=== PATIENT | male | born 1950 | race Caucasian/White ===

== ENCOUNTER 2019-03-22 07:01 | Day surgery (SDC) | payer OTHER, BC ==
[2019-03-21 13:12] VITALS: BMI 30.1
[2019-03-22 08:31] VITALS: TEMP 97.8
[2019-03-22 09:29] VITALS: BP 109/50; PULSE 73
--- NOTE | 2019-03-25 16:43 | PATH ---
Surgical Pathology Report Patient Name: ROGERS PIEDRA [facility]. Rec. #: [id number] /Age/Gender: 1950 (Age: 68) / M Account: [id number] Location: [facility]-ENDOSCOPY Taken: 03/22/2019 Received: 03/22/2019 Reported: 03/25/2019 Physicians: Chadd Rubin M.D. Specimen(s) Received A: RIGHT COLON B: HEPATIC FLEXURE POLYP C: RECTAL POLYP Clinical History History of colonoscopy Postoperative diagnosis: Polyps, diverticulosis Final Diagnosis A. RIGHT COLON POLYPS, POLYPECTOMY: TUBULAR ADENOMA, FOUR FRAGMENTS. B. HEPATIC FLEXURE POLYP, POLYPECTOMY: TUBULAR ADENOMA. C. RECTAL POLYP, POLYPECTOMY: HYPERPLASTIC POLYP. Electronically Signed Radha Stephen M.D. Gross Description A. Received in formalin, labeled "right colon polyps" are 4 monroe, irregular portions of soft tissue ranging from 0.1-0.2 cm. in greatest dimension. The specimens are submitted in toto in one cassette. B. Received in formalin, labeled "biopsy hepatic flexure" are 3 monroe, irregular portions of soft tissue ranging from 0.2-0.3 cm. in greatest dimension. The specimens are submitted in toto in one cassette. C. Received in formalin, labeled "biopsy rectal polyp" is a monroe, irregular portion of soft tissue measuring 0.4 cm. in greatest dimension. The specimen is submitted in toto in one cassette. DL/03/22/2019 saudi/03/22/2019
== END 2019-03-22 09:37 | disposition home or self-care (01) ==
LOC: JASU-ENDO 07:01
PROVIDERS: ATTEND Internal Medicine Gastroenterology
PROC: 0DBL8ZX Excision of Transverse Colon, Via Natural or Artificial Opening Endoscopic, Diagnostic (ICD-10-PCS; 2019-03-22)
PROC: 0DBP8ZX Excision of Rectum, Via Natural or Artificial Opening Endoscopic, Diagnostic (ICD-10-PCS; 2019-03-22)
PROC: 0DBK8ZX Excision of Ascending Colon, Via Natural or Artificial Opening Endoscopic, Diagnostic (ICD-10-PCS; principal; 2019-03-22 08:00)
DX: Z12.11 Encounter for screening for malignant neoplasm of colon (principal); Z86.010 Personal history of colon polyps; D12.2 Benign neoplasm of ascending colon; K62.1 Rectal polyp; D12.3 Benign neoplasm of transverse colon; K57.30 Diverticulosis of large intestine without perforation or abscess without bleeding
CPT/HCPCS: 88305-TC

== ENCOUNTER 2020-09-25 11:43 | Inpatient (IN) | payer OTHER, BC ==
[2020-09-25] MEDS ORDERED: ACETAMINOPHEN 500 MG TABLET (FP) PO ONE (13:09)
[2020-09-25] MEDS ORDERED: SODIUM CHLORIDE 1,000 ML IV STA (13:09)
[2020-09-25] MEDS ORDERED: ACETAMINOPHEN 325 MG TABLET (FP) ONE (13:31)
[2020-09-25] MEDS ORDERED: ACETAMINOPHEN 1000 MG/100 ML VIAL (NON FORMULARY) IVPB PRN (17:38)
[2020-09-25] MEDS: SODIUM CHLORIDE 1,000 ML IV SCH (18:17)
[2020-09-25] MEDS ORDERED: PIPERACILLIN/TAZOB 3.375 GM 3.375 GM/50 ML BAG IVPB ONE (19:23)
[2020-09-25] MEDS: PIPERACILLIN/TAZOB 3.375 GM 3.375 GM in DEXTROSE 5%-WATER - 50 ML IVPB SCH (19:58)
[2020-09-26 00:04] VITALS: BMI 29.7
[2020-09-26] MEDS ORDERED: DEXTROSE 5%-WATER - 50 ML IVPB ONE ×4 (00:13→18:23)
[2020-09-26] MEDS ORDERED: PIPERACILLIN/TAZOBACTAM 3.375 GM VIAL IVPB ONE ×4 (00:13→18:22)
[2020-09-26] MEDS: PIPERACILLIN/TAZOB 3.375 GM 3.375 GM in DEXTROSE 5%-WATER - 50 ML IVPB SCH ×4 (00:21→18:29)
[2020-09-26] MEDS: SODIUM CHLORIDE 1,000 ML IV SCH (06:38)
[2020-09-26 09:12] LABS: BASO % 0.2 % (0-2.0); EOS % 0.6 % (0-4.5); HEMATOCRIT 35.6 % (35.4-49); HEMOGLOBIN 12.3 GM/dL (11.7-16.9); LYMPH % 10.3 % (8-40); MCHC 34.6 g/dl (32.0-35.9); MEAN CELL VOLUME 89.6 fl (80-96); MEAN PLT VOLUME 7.8 fl (7.5-11.1); MONO % 6.6 % (3.8-10.2); NEUT % 82.3 % (42.8-82.8); PLATELET COUNT 393 10^3/uL (134-434); RBC 3.97 M/mm3 (4.00-5.60); RDW 13.9 % (11.9-15.9); WHITE BLOOD COUNT 14.5 K/mm3 (4.0-10.0)
[2020-09-26 09:33] LABS: ALBUMIN 2.5 g/dl (3.4-5.0); BLOOD UREA NITROGEN 15.1 mg/dL (7-18); CALCIUM 7.6 mg/dL (8.5-10.1)
[2020-09-26 09:34] LABS: MAGNESIUM 2.2 mg/dL (1.8-2.4)
[2020-09-26 09:36] LABS: PHOSPHOROUS 3.6 mg/dL (2.5-4.9)
[2020-09-26 09:37] LABS: BILIRUBIN,TOTAL 0.7 mg/dL (0.2-1); TOT PROT 5.6 g/dl (6.4-8.2)
[2020-09-26] MEDS: DEXTROSE 5%-0.45% SALINE 1,000 ML IV SCH (14:41)
[2020-09-27] MEDS ORDERED: DEXTROSE 5%-WATER - 50 ML IVPB ONE ×4 (01:55→20:12)
[2020-09-27] MEDS ORDERED: PIPERACILLIN/TAZOBACTAM 3.375 GM VIAL IVPB ONE ×4 (01:55→20:12)
[2020-09-27] MEDS: DEXTROSE 5%-0.45% SALINE 1,000 ML IV SCH ×4 (02:03→18:11)
[2020-09-27] MEDS: PIPERACILLIN/TAZOB 3.375 GM 3.375 GM in DEXTROSE 5%-WATER - 50 ML IVPB SCH ×4 (02:03→20:18)
[2020-09-27 08:40] LABS: BASO % 0.1 % (0-2.0); HEMATOCRIT 37.4 % (35.4-49); HEMOGLOBIN 12.9 GM/dL (11.7-16.9); MCH 30.9 pg (25.7-33.7); MCHC 34.5 g/dl (32.0-35.9); MEAN CELL VOLUME 89.7 fl (80-96); MEAN PLT VOLUME 7.6 fl (7.5-11.1); MONO % 6.9 % (3.8-10.2); PLATELET COUNT 442 10^3/uL (134-434); RBC 4.17 M/mm3 (4.00-5.60); RDW 13.8 % (11.9-15.9); WHITE BLOOD COUNT 11.8 K/mm3 (4.0-10.0)
[2020-09-27 08:47] LABS: INR 1.25 (0.83-1.09); PROTHROMBIN TIME (PATIENT) 15.3 SEC (9.7-13.0)
[2020-09-27 09:06] LABS: CALCIUM 7.8 mg/dL (8.5-10.1)
[2020-09-27 09:07] LABS: ALBUMIN 2.4 g/dl (3.4-5.0); BLOOD UREA NITROGEN 9.3 mg/dL (7-18)
[2020-09-27 09:10] LABS: CREATININE 1.1 mg/dL (0.55-1.3)
[2020-09-27 09:11] LABS: BILIRUBIN,TOTAL 0.6 mg/dL (0.2-1)
[2020-09-27 09:12] LABS: AMYLASE 33 U/L (25-115); LIPASE 149 U/L (73-393); TOT PROT 5.8 g/dl (6.4-8.2)
[2020-09-27 09:13] LABS: ALBUMIN 2.5 g/dl (3.4-5.0)
[2020-09-27 09:16] LABS: BILIRUBIN,DIRECT 0.2 mg/dL (0.0-0.2)
[2020-09-27 09:18] LABS: BILIRUBIN,TOTAL 0.6 mg/dL (0.2-1); TOT PROT 5.9 g/dl (6.4-8.2)
[2020-09-28] MEDS ORDERED: PIPERACILLIN/TAZOBACTAM 3.375 GM VIAL IVPB ONE ×4 (02:18→20:43)
[2020-09-28] MEDS ORDERED: DEXTROSE 5%-WATER - 50 ML IVPB ONE ×4 (02:19→20:43)
[2020-09-28] MEDS: PIPERACILLIN/TAZOB 3.375 GM 3.375 GM in DEXTROSE 5%-WATER - 50 ML IVPB SCH ×4 (02:46→21:49)
[2020-09-28] MEDS: DEXTROSE 5%-0.45% SALINE 1,000 ML IV SCH ×4 (02:47→19:47)
[2020-09-28 08:18] LABS: BASO % 0.3 % (0-2.0); HEMATOCRIT 37.5 % (35.4-49); HEMOGLOBIN 13.2 GM/dL (11.7-16.9); LYMPH % 14.4 % (8-40); MCH 31.3 pg (25.7-33.7); MCHC 35.2 g/dl (32.0-35.9); MEAN CELL VOLUME 88.9 fl (80-96); MEAN PLT VOLUME 7.5 fl (7.5-11.1); MONO % 6.9 % (3.8-10.2); NEUT % 76.4 % (42.8-82.8); PLATELET COUNT 464 10^3/uL (134-434); RBC 4.22 M/mm3 (4.00-5.60); RDW 13.3 % (11.9-15.9); WHITE BLOOD COUNT 9.1 K/mm3 (4.0-10.0)
[2020-09-28 08:35] LABS: CALCIUM 8.1 mg/dL (8.5-10.1)
[2020-09-28 08:36] LABS: ALBUMIN 2.4 g/dl (3.4-5.0); BLOOD UREA NITROGEN 5.2 mg/dL (7-18)
[2020-09-28 08:38] LABS: BILIRUBIN,DIRECT 0.2 mg/dL (0.0-0.2)
[2020-09-28 08:40] LABS: BILIRUBIN,TOTAL 0.4 mg/dL (0.2-1)
[2020-09-28 08:41] LABS: TOT PROT 5.7 g/dl (6.4-8.2)
[2020-09-28] MEDS: TAMSULOSIN HCL 0.4 MG CAP PO SCH (09:29)
[2020-09-28] MEDS: amLODIPine BESYLATE 10 MG TABLET (FP) PO SCH (09:29)
[2020-09-28] MEDS ORDERED: MIDAZOLAM HCL 2 MG/2 ML SINGLE DOSE VIAL IVPUSH ONE ×2 (10:28→10:44)
[2020-09-28] MEDS ORDERED: SODIUM CHLORIDE 500 ML IV ONE (11:15)
[2020-09-28 17:09] LABS: WEST NILE VIRUS AB SERUM,IGM Negative (Negative)
[2020-09-29] MEDS ORDERED: DEXTROSE 5%-WATER - 50 ML IVPB ONE ×4 (02:23→19:45)
[2020-09-29] MEDS ORDERED: PIPERACILLIN/TAZOBACTAM 3.375 GM VIAL IVPB ONE ×4 (02:23→19:45)
[2020-09-29] MEDS: PIPERACILLIN/TAZOB 3.375 GM 3.375 GM in DEXTROSE 5%-WATER - 50 ML IVPB SCH ×4 (02:28→19:59)
[2020-09-29] MEDS: DEXTROSE 5%-0.45% SALINE 1,000 ML IV SCH ×3 (04:33→19:53)
[2020-09-29] MEDS: TAMSULOSIN HCL 0.4 MG CAP PO SCH (07:55)
[2020-09-29 08:15] LABS: BASO % 0.1 % (0-2.0); EOS % 0.5 % (0-4.5); HEMATOCRIT 34.9 % (35.4-49); HEMOGLOBIN 12.4 GM/dL (11.7-16.9); LYMPH % 3.9 % (8-40); MCH 31.5 pg (25.7-33.7); MCHC 35.4 g/dl (32.0-35.9); MEAN CELL VOLUME 88.9 fl (80-96); MEAN PLT VOLUME 7.3 fl (7.5-11.1); MONO % 3.6 % (3.8-10.2); NEUT % 91.9 % (42.8-82.8); PLATELET COUNT 437 10^3/uL (134-434); RBC 3.93 M/mm3 (4.00-5.60); RDW 13.5 % (11.9-15.9); WHITE BLOOD COUNT 23.6 K/mm3 (4.0-10.0)
[2020-09-29 08:28] LABS: ALBUMIN 2.3 g/dl (3.4-5.0)
[2020-09-29 08:30] LABS: BLOOD UREA NITROGEN 6.9 mg/dL (7-18); CALCIUM 7.7 mg/dL (8.5-10.1)
[2020-09-29 08:31] LABS: ALBUMIN 2.3 g/dl (3.4-5.0); BILIRUBIN,DIRECT 0.2 mg/dL (0.0-0.2); MAGNESIUM 1.9 mg/dL (1.8-2.4)
[2020-09-29 08:33] LABS: BILIRUBIN,TOTAL 0.5 mg/dL (0.2-1); TOT PROT 5.5 g/dl (6.4-8.2)
[2020-09-29 08:34] LABS: CREATININE 1.1 mg/dL (0.55-1.3); PHOSPHOROUS 3.1 mg/dL (2.5-4.9)
[2020-09-29 08:35] LABS: BILIRUBIN,TOTAL 0.8 mg/dL (0.2-1); TOT PROT 5.6 g/dl (6.4-8.2)
[2020-09-29] MEDS: amLODIPine BESYLATE 10 MG TABLET (FP) PO SCH (10:04)
[2020-09-29 11:41] LABS: ANISOCYTOSIS 0; MACROCYTOSIS 0; PLATELET ESTIMATE NORMAL
[2020-09-29] MEDS ORDERED: POTASSIUM CHLORIDE TABS 20 MEQ TABLET.ER (FP) PO ONE (11:55)
[2020-09-29 15:09] LABS: E.chaff HME IgG Negative (Neg:<1:64)
[2020-09-29] MEDS: ACETAMINOPHEN 500 MG TABLET (FP) PO PRN (20:26)
[2020-09-30] MEDS ORDERED: PIPERACILLIN/TAZOBACTAM 3.375 GM VIAL IVPB ONE ×4 (02:04→20:25)
[2020-09-30] MEDS ORDERED: DEXTROSE 5%-WATER - 50 ML IVPB ONE ×4 (02:05→20:25)
[2020-09-30] MEDS: PIPERACILLIN/TAZOB 3.375 GM 3.375 GM in DEXTROSE 5%-WATER - 50 ML IVPB SCH ×4 (02:10→21:07)
[2020-09-30 02:42] LABS: URINE APPEARANCE CLEAR; URINE BILIRUBIN NEGATIVE (NEGATIVE); URINE COLOR YELLOW; URINE GLUCOSE (UA) NEGATIVE (NEGATIVE); URINE KETONE NEGATIVE (NEGATIVE); URINE LEUK ESTERASE NEGATIVE (NEGATIVE); URINE NITRITE NEGATIVE (NEGATIVE); URINE PROTEIN NEGATIVE (NEGATIVE); URINE UROBILINOGEN 0.2 mg/dL (0.2-1.0)
[2020-09-30] MEDS: DEXTROSE 5%-0.45% SALINE 1,000 ML IV SCH ×2 (05:40→14:37)
[2020-09-30] MEDS: TAMSULOSIN HCL 0.4 MG CAP PO SCH (08:05)
[2020-09-30 09:22] LABS: BASO % 0.3 % (0-2.0); EOS % 1.1 % (0-4.5); HEMATOCRIT 39.3 % (35.4-49); HEMOGLOBIN 13.7 GM/dL (11.7-16.9); LYMPH % 8.7 % (8-40); MCH 30.7 pg (25.7-33.7); MCHC 34.7 g/dl (32.0-35.9); MEAN CELL VOLUME 88.2 fl (80-96); MEAN PLT VOLUME 7.1 fl (7.5-11.1); MONO % 5.5 % (3.8-10.2); NEUT % 84.4 % (42.8-82.8); PLATELET COUNT 438 10^3/uL (134-434); RBC 4.45 M/mm3 (4.00-5.60); RDW 13.5 % (11.9-15.9); WHITE BLOOD COUNT 14.1 K/mm3 (4.0-10.0)
[2020-09-30 09:53] LABS: ALBUMIN 2.7 g/dl (3.4-5.0)
[2020-09-30 09:58] LABS: BLOOD UREA NITROGEN 6.1 mg/dL (7-18); CALCIUM 8.5 mg/dL (8.5-10.1)
[2020-09-30 10:00] LABS: MAGNESIUM 2.1 mg/dL (1.8-2.4); PHOSPHOROUS 2.6 mg/dL (2.5-4.9)
[2020-09-30 10:01] LABS: CREATININE 0.9 mg/dL (0.55-1.3)
[2020-09-30 10:02] LABS: TOT PROT 6.4 g/dl (6.4-8.2)
[2020-09-30 10:05] LABS: BILIRUBIN,TOTAL 0.8 mg/dL (0.2-1)
[2020-09-30] MEDS: amLODIPine BESYLATE 10 MG TABLET (FP) PO SCH (10:12)
[2020-09-30] MEDS: ACETAMINOPHEN 500 MG TABLET (FP) PO PRN (21:14)
[2020-10-01] MEDS ORDERED: DEXTROSE 5%-WATER - 50 ML IVPB ONE ×2 (01:42→08:40)
[2020-10-01] MEDS ORDERED: PIPERACILLIN/TAZOBACTAM 3.375 GM VIAL IVPB ONE ×2 (01:42→08:40)
[2020-10-01] MEDS: PIPERACILLIN/TAZOB 3.375 GM 3.375 GM in DEXTROSE 5%-WATER - 50 ML IVPB SCH ×3 (02:16→15:04)
[2020-10-01] MEDS: DEXTROSE 5%-0.45% SALINE 1,000 ML IV SCH ×3 (02:19→15:03)
[2020-10-01 08:40] LABS: BASO % 0.4 % (0-2.0); EOS % 2.7 % (0-4.5); HEMATOCRIT 36.6 % (35.4-49); HEMOGLOBIN 12.9 GM/dL (11.7-16.9); LYMPH % 17.1 % (8-40); MCH 31.5 pg (25.7-33.7); MCHC 35.3 g/dl (32.0-35.9); MEAN CELL VOLUME 89.2 fl (80-96); MEAN PLT VOLUME 7.3 fl (7.5-11.1); NEUT % 70.8 % (42.8-82.8); PLATELET COUNT 427 10^3/uL (134-434); RDW 13.7 % (11.9-15.9); WHITE BLOOD COUNT 9.3 K/mm3 (4.0-10.0)
[2020-10-01] MEDS: TAMSULOSIN HCL 0.4 MG CAP PO SCH (08:43)
[2020-10-01 09:12] LABS: ALBUMIN 2.4 g/dl (3.4-5.0); CALCIUM 8.2 mg/dL (8.5-10.1)
[2020-10-01 09:13] LABS: BLOOD UREA NITROGEN 7.5 mg/dL (7-18); MAGNESIUM 2.2 mg/dL (1.8-2.4)
[2020-10-01 09:15] LABS: PHOSPHOROUS 3.3 mg/dL (2.5-4.9)
[2020-10-01 09:16] LABS: CREATININE 0.9 mg/dL (0.55-1.3)
[2020-10-01 09:17] LABS: BILIRUBIN,TOTAL 0.4 mg/dL (0.2-1); TOT PROT 5.9 g/dl (6.4-8.2)
[2020-10-01] MEDS: amLODIPine BESYLATE 10 MG TABLET (FP) PO SCH (09:33)
[2020-10-01 14:59] VITALS: BP 140/83; PULSE 87; TEMP 98.3
[2020-10-06 16:09] LABS: BABESIA MICROTI ANTIBODY IGG <1:10 (Neg:<1:10); BABESIA MICROTI ANTIBODY IGM <1:10 (Neg:<1:10)
== END 2020-10-01 15:21 | disposition home health service (06) | DRG 446 ==
LOC: JER 11:43 → JERBED 16:47 → J8W 22:02
PROC: 0F9430Z Drainage of Gallbladder with Drainage Device, Percutaneous Approach (ICD-10-PCS; principal; 2020-09-28)
PROC: BF12YZZ Fluoroscopy of Gallbladder using Other Contrast (ICD-10-PCS; 2020-09-28)
DX: K80.00 Calculus of gallbladder with acute cholecystitis without obstruction (principal); E78.00 Pure hypercholesterolemia, unspecified; K46.9 Unspecified abdominal hernia without obstruction or gangrene; D72.829 Elevated white blood cell count, unspecified; N40.0 Benign prostatic hyperplasia without lower urinary tract symptoms; K76.89 Other specified diseases of liver; K57.90 Diverticulosis of intestine, part unspecified, without perforation or abscess without bleeding; I10 Essential (primary) hypertension; D12.6 Benign neoplasm of colon, unspecified; K62.7 Radiation proctitis; N32.89 Other specified disorders of bladder; E66.9 Obesity, unspecified; Z68.29 Body mass index [BMI] 29.0-29.9, adult; Z85.46 Personal history of malignant neoplasm of prostate
CPT/HCPCS: 36415; 47490; 74177-TC; 74181-TC; 80048; 80053; 80076; 81003; 82150; 82550; 82553; 83690; 83735; 84100; 84443; 85025; 85610; 86140; 86301; 86618; 86666; 86753; 86788; 86789; 87040; 87045; 87046; 87070; 87075; 87077; 87086; 87102; 87116; 87177; 87184; 87205; 87206; 87207; 87209; 87210; 87324; 87449; 93005; 93010; 97116-GP; 97162-GP; 99285-25; A4358; C1729; C1769; C9803; J0131; Q9967; U0003; U0005

== ENCOUNTER 2020-11-11 04:18 | Day surgery (SDC) | payer OTHER, BC ==
[2020-11-10 09:03] VITALS: BMI 28.3
[2020-11-11] MEDS ORDERED: BUPIVACAINE HCL/PF 0.5% (5MG/ML) 10 ML VIAL ONE (12:56)
[2020-11-11] MEDS ORDERED: ONDANSETRON 4 MG/2 ML VIAL IVPUSH PRN ×2 (13:31→15:44)
[2020-11-11] MEDS ORDERED: oxyCODONE HCL 5 MG TABLET PO PRN ×3 (13:31→15:44)
[2020-11-11] MEDS ORDERED: MIDAZOLAM HCL 2 MG/2 ML SINGLE DOSE VIAL ONE (13:36)
[2020-11-11] MEDS ORDERED: LACTATED RINGERS SOLUTION 1,000 ML IV SCH (13:45)
[2020-11-11] MEDS ORDERED: ceFAZolin SODIUM 1 GM VIAL IVPB ONE (13:56)
[2020-11-11] MEDS ORDERED: BUPIVACAINE HCL/PF 0.5% (5 MG/ML) 30 ML VIAL IJ ONE (14:11)
[2020-11-11] MEDS ORDERED: PROPOFOL 20 ML ONE (14:35)
[2020-11-11] MEDS ORDERED: TAMSULOSIN HCL 0.4 MG CAP PO SCH (16:00)
[2020-11-11] MEDS ORDERED: HEPARIN NA (PORCINE) 5,000 UNITS/ML 1ML VIAL SQ SCH (18:00)
[2020-11-11] MEDS: ACETAMINOPHEN 500 MG TABLET (FP) PO SCH (18:09)
[2020-11-12] MEDS: ACETAMINOPHEN 500 MG TABLET (FP) PO SCH ×3 (00:23→12:01)
[2020-11-12 04:00] VITALS: TEMP 98.8
[2020-11-12] MEDS: HEPARIN NA (PORCINE) 5,000 UNITS/ML 1ML VIAL SQ SCH ×2 (06:41→14:38)
[2020-11-12] MEDS ORDERED: TAMSULOSIN HCL 0.4 MG CAP PO SCH (08:30)
[2020-11-12] MEDS ORDERED: amLODIPine BESYLATE 10 MG TABLET (FP) PO SCH (10:00)
[2020-11-12] MEDS ORDERED: MULTIVITAMINS (DAILY MVI) TABLET (FP) PO SCH (10:00)
[2020-11-12] MEDS ORDERED: CHOLECALCIFEROL (VIT D3) 1,000 UNIT (25 MCG) TABLET PO SCH (10:00)
[2020-11-12 11:25] LABS: BASO % 0.1 % (0-2.0); HEMATOCRIT 39.6 % (35.4-49); HEMOGLOBIN 13.5 GM/dL (11.7-16.9); LYMPH % 12.5 % (8-40); MCH 30.2 pg (25.7-33.7); MEAN CELL VOLUME 88.8 fl (80-96); MEAN PLT VOLUME 8.8 fl (7.5-11.1); MONO % 6.8 % (3.8-10.2); NEUT % 80.6 % (42.8-82.8); PLATELET COUNT 201 10^3/uL (134-434); RBC 4.46 M/mm3 (4.00-5.60); RDW 14.8 % (11.9-15.9)
[2020-11-12 12:04] LABS: ALBUMIN 2.9 g/dl (3.4-5.0); BLOOD UREA NITROGEN 17.7 mg/dL (7-18); CALCIUM 8.4 mg/dL (8.5-10.1); MAGNESIUM 2.1 mg/dL (1.8-2.4)
[2020-11-12 12:08] LABS: CREATININE 1.1 mg/dL (0.55-1.3)
[2020-11-12 12:09] LABS: BILIRUBIN,TOTAL 0.9 mg/dL (0.2-1); TOT PROT 5.8 g/dl (6.4-8.2)
[2020-11-12 14:42] VITALS: BP 117/73; PULSE 94
== END 2020-11-12 18:54 | disposition home or self-care (01) ==
LOC: SUATTDRO 04:18 → JASU-SURG 04:18 → JASUSAT 04:18 → J6S 17:40 → JASUSAT 11-12 18:53
PROVIDERS: ATTEND Internal Medicine
PROC: 0FT44ZZ Resection of Gallbladder, Percutaneous Endoscopic Approach (ICD-10-PCS; principal; 2020-11-11 10:30)
DX: K81.1 Chronic cholecystitis (principal)
CPT/HCPCS: 36415; 76000-TC-FY; 80053; 83735; 85025; 88300-TC; 88304-TC; 94760; J1644

== ENCOUNTER → 2022-12-23 | Day surgery (SDC) | payer OTHER, BC ==
[2022-12-19 16:16] VITALS: BMI 30.7
[2022-12-23 09:08] VITALS: RESP 18; TEMP 97.3
[2022-12-23 10:53] VITALS: BP 131/74; PULSE 59
== END | disposition home or self-care (01) ==
LOC: JASU-ENDO 04:57
PROVIDERS: ATTEND Internal Medicine Gastroenterology
PROC: 0DBL8ZX Excision of Transverse Colon, Via Natural or Artificial Opening Endoscopic, Diagnostic (ICD-10-PCS; 2022-12-23)
PROC: 0DBN8ZX Excision of Sigmoid Colon, Via Natural or Artificial Opening Endoscopic, Diagnostic (ICD-10-PCS; 2022-12-23)
PROC: 0DBP8ZX Excision of Rectum, Via Natural or Artificial Opening Endoscopic, Diagnostic (ICD-10-PCS; principal; 2022-12-23 10:00)
DX: Z12.11 Encounter for screening for malignant neoplasm of colon (principal); D12.3 Benign neoplasm of transverse colon; D12.8 Benign neoplasm of rectum; K63.5 Polyp of colon; K57.30 Diverticulosis of large intestine without perforation or abscess without bleeding; I10 Essential (primary) hypertension
CPT/HCPCS: 88305-TC